=== PATIENT | male | born 1940 | race Caucasian/White ===

== ENCOUNTER → 2016-12-16 | Outpatient (CLI) | payer MEDICARE | END | disposition disaster alternative care site (69) | LOC: GRAD 12:09 | DX: Z46.82 Encounter for fitting and adjustment of non-vascular catheter (principal) ==

== ENCOUNTER → 2017-01-02 | Outpatient (CLI) | payer MEDICARE | END | disposition disaster alternative care site (69) | LOC: GRAD 13:52 | PROC: BT10YZZ Fluoroscopy of Bladder using Other Contrast (ICD-10-PCS; principal; 2017-01-02) | DX: R32 Unspecified urinary incontinence (principal) ==